=== PATIENT | male | born 1985 | race Caucasian/White ===

== ENCOUNTER 2017-10-10 08:46 | Outpatient (CLI) | payer BC ==
--- NOTE | 2017-10-10 09:38 | RAD ---
TWO VIEWS CHEST: HISTORY: Chemical-induced asthma. FINDINGS: PA and lateral views of the chest are obtained. Comparison is made to previous exam from 11/10/16. Two views chest demonstrate the lungs to be well aerated. No evidence of active intrathoracic diseas e is seen. No evidence of effusions, pneumonia, or pneumothorax seen. IMPRESSION: Normal 2 views chest. POS: [facility]
== END 2017-10-10 08:47 | disposition home or self-care (01) ==
LOC: RAD-FRANK 08:46
PROVIDERS: ATTEND Nurse Practitioner Family
DX: J68.8 Other respiratory conditions due to chemicals, gases, fumes and vapors (principal)
CPT/HCPCS: 71046

== ENCOUNTER 2018-03-21 09:38 | Outpatient (CLI) | payer BC ==
--- NOTE | 2018-03-21 10:21 | RAD ---
TWO VIEW CHEST: History: Cough, wheezing. FINDINGS: Lung jones are clear of infiltrate. Heart and mediastinum appear normal. Osseous structures are unre markable. IMPRESSION: No acute finding. POS: [facility]
== END 2018-03-21 09:39 | disposition home or self-care (01) ==
LOC: RAD-FRANK 09:38
PROVIDERS: ATTEND Nurse Practitioner Family
DX: R05 Cough (principal); R06.2 Wheezing
CPT/HCPCS: 71046

== ENCOUNTER 2018-04-08 16:55 | Emergency (ER) | payer BC ==
--- NOTE | 2018-04-08 17:42 | RAD ---
THREE VIEWS OF THE LEFT SHOULDER 04/08/18 COMPARISON: None. HISTORY: Left shoulder pain that began Tuesday evening after hitting the shoulder on a tree running [place]. FINDINGS: Three views of the left shoulder shows no evidence of acute fracture or dislocation. No degenerative changes. No soft tissue swelling is present. The visualized left thorax is unremarkable. IMPRESSION: Unremarkable exam. POS: [facility]
== END 2018-04-08 17:59 | disposition home or self-care (01) ==
LOC: SCSER 16:55
DX: S40.012A Contusion of left shoulder, initial encounter (principal); I10 Essential (primary) hypertension; Z79.899 Other long term (current) drug therapy; W22.8XXA Striking against or struck by other objects, initial encounter

== ENCOUNTER 2019-02-15 16:32 | Outpatient (CLI) | payer BC ==
--- NOTE | 2019-02-15 17:43 | RAD ---
PA AND LATERAL CHEST: 02/15/19 HISTORY: Cough. COMPARISON: 03/21/18 study. Heart size and mediastinum are within normal limits. The lungs are clear of infiltrates. No significa nt bony findings. IMPRESSION: No active intrathoracic disease. POS: [facility]
== END 2019-02-15 16:33 | disposition home or self-care (01) ==
LOC: RAD-FRANK 16:32
PROVIDERS: ATTEND Nurse Practitioner Family
DX: J20.8 Acute bronchitis due to other specified organisms (principal)
CPT/HCPCS: 71046